=== PATIENT | female | born 1990 | race Caucasian/White ===

== ENCOUNTER 2018-08-14 20:53 | Emergency (ER) | payer OTHER ==
[~2018-08-14] VITALS: Ht 172.7 cm; Wt 131.5 kg
[2018-08-14 21:14] LABS: URINE BILIRUBIN NEGATIVE (Negative); URINE BLOOD 3+ (Negative); URINE CLARITY CLEAR; URINE COLOR YELLOW; URINE GLUCOSE-RANDOM NEGATIVE (Negative); URINE KETONES NEGATIVE (Negative); URINE LEUKOCYTES-REFLEX 1+ (Negative); URINE NITRITE-REFLEX NEGATIVE (Negative); URINE PROTEIN NEGATIVE (Negative); URINE UROBILINOGEN 0.2 E.U./dl (0.2-1.0)
[2018-08-14 21:23] LABS: SQUAMOUS >10 Many /LPF (0-3)
[2018-08-14 21:24] LABS: CASTS None Seen /LPF (None Seen)
[2018-08-14 21:29] LABS: CRYSTALS None Seen /LPF (None Seen); URINE RBC >20 Many /HPF (0-2)
[2018-08-14] MEDS ORDERED: MACROBID 100 M100 M1 PO (21:32)
[2018-08-14] MEDS ORDERED: PYRIDIUM200 MG PO (21:32)
[2018-08-14 21:41] VITALS: BP 126/85
== END 2018-08-14 21:47 | disposition home or self-care (01) ==
LOC: M.ERS 20:53
PROVIDERS: Nurse Practitioner Family
DX: N39.0 Urinary tract infection, site not specified (principal); R31.9 Hematuria, unspecified

== ENCOUNTER → 2018-09-10 | Outpatient (CLI) | payer OTHER ==
[~2018-09-10] MED LIST: MACROBID 100 M100 M1 PO; PYRIDIUM200 MG PO
== END ==
LOC: M.LAB 11:40
DX: N92.6 Irregular menstruation, unspecified (principal)

== ENCOUNTER → 2020-08-14 | Outpatient (CLI) | payer OTHER ==
[~2020-08-14] MED LIST changes: +PRENA1 CHEW TA1.4 MG PO
[2020-08-14 09:02] LABS: ABSOLUTE BASOPHILS 0.1 thou/uL (0.0-0.2); ABSOLUTE EOSINOPHILS 0.1 thou/uL (0.0-0.7); ABSOLUTE LYMPHOCYTES 1.5 thou/uL (0.8-5.3); ABSOLUTE MONOCYTES 0.4 thou/uL (0.0-1.2); ABSOLUTE NEUTROPHILS 6.1 thou/uL (1.6-8.1); BASOPHILS 0.6 %; EOSINOPHILS 1.1 %; HEMATOCRIT 37.8 % (37.0-47.0); HEMOGLOBIN 12.3 gm/dL (12.0-15.0); LYMPHOCYTES 18.3 %; MCH 24.1 pg (26.0-34.0); MCHC 32.7 g/dL (28.0-37.0); MCV 73.9 fL (80.0-100.0); MONOCYTES 5.2 %; MPV 6.4 fl. (7.2-11.1); NUCLEATED RBCS 0 /100WBC; PLATELET COUNT* 438 thou/uL (150-400); POLYS 74.8 %; RBC 5.11 mil/uL (4.20-5.00); WBC 8.2 thou/uL (4.0-11.0)
--- NOTE | 2020-08-14 09:11 | 2DMMODE ---
[place] [address] 2 D/M-MODE ECHOCARDIOGRAM Name: LONNIE SINGH Room: [facility]#: [id number] Admission: 08/14/20 Attend Phys: Jean Ohara, Discharge: Date of : 89 Date of Service: 08/14/20 0911 Report #: [id number] THIS REPORT FOR: cc: Lena Guillaume NP, Elizabeth NP Liston, Michael J. MD [facility] ~ APPROVED REPORT Study performed: 08/14/2020 08:01:03 EXAM: Comprehensive 2D, Doppler, and color-flow Echocardiogram Patient Location: Out-Patient BSA: 2.38 HR: 71 bpm BP: 120/80 mmHg Other Information Study Quality: Good Indications Syncope 2D Dimensions IVSd: 11.31 (7-11mm) LVOT Diam: 20.80 (18-24mm) LVDd: 50.60 mm PWd: 11.20 (7-11mm) Ascending Ao: 27.78 (22-36mm) LVDs: 27.68 (25-40mm) Aortic Root: 32.08 mm Volumes Left Atrial Volume (Systole) LA ESV Index: 15.00 mL/m2 Aortic Valve AoV Peak Aric.: 1.16 m/s AO Peak Gr.: 5.39 mmHg LVOT Max P.07 mmHg AO Mean Gr.: 2.69 mmHg LVOT Mean P.91 mmHg LVOT Max V: 1.01 m/s AO V2 VTI: 22.42 cm LVOT Mean V: 0.63 m/s MARY (VTI): 3.19 cm2 LVOT V1 VTI: 21.03 cm Mitral Valve E/A Ratio: 1.41 [place] [address] 2 D/M-MODE ECHOCARDIOGRAM Name: LONNIE SINGH Room: [facility]#: [id number] Admission: 08/14/20 Attend Phys: Jean Ohara, Discharge: Date of : 89 Date of Service: 08/14/20 0911 Report #: [id number] MV Decel. Time: 163.68 ms MV E Max Aric.: 0.63 m/s MV PHT: 47.47 ms MVA (PHT): 4.63 cm2 TDI E/Lateral E': 5.25 E/Medial E': 6.30 Medial E' Aric.: 0.10 m/s Lateral E' Aric.: 0.12 m/s Pulmonary Valve PV Peak Aric.: 0.69 m/s PV Peak Gr.: 1.92 mmHg Left Ventricle The left ventricle is normal size. There is normal LV segmental wall motion. There is normal left ventricular wall thickness. Left ventricular systolic function is normal. LVEF is 55-60%. The left ventricular diastolic function is normal. Right Ventricle The right ventricle is normal size. The right ventricular systolic function is normal. Atria The left atrium size is normal. The right atrium size is normal. Aortic Valve The aortic valve is normal in structure. No aortic regurgitation is present. There is no aortic valvular stenosis. Mitral Valve The mitral valve is normal in structure. There is no mitral valve regurgitation noted. No evidence of mitral valve stenosis. Tricuspid Valve The tricuspid valve is normal in structure. There is no tricuspid valve regurgitation noted. Pulmonic Valve The pulmonary valve is normal in structure. There is no pulmonic valvular regurgitation. Great Vessels The aortic root is normal in size. IVC is normal in size and collapses >50% [place] [address] 2 D/M-MODE ECHOCARDIOGRAM Name: LONNIE SINGH Room: [facility]#: [id number] Admission: 08/14/20 Attend Phys: Jean Ohara, Discharge: Date of : 89 Date of Service: 08/14/20 0911 Report #: [id number] Pericardium There is no pericardial effusion. <Conclusion> The left ventricle is normal size. There is normal left ventricular wall thickness. Left ventricular systolic function is normal. LVEF is 55-60%. The left ventricular diastolic function is normal. There is normal LV segmental wall motion. IVC is normal in size and collapses >50% with inspiration. <ELECTRONICALLY SIGNED> By: Jean Ohaar MD, FACC 08/14/20910 0 0 Jean Ohara MD, FACC /INF
[2020-08-14 09:20] LABS: ALBUMIN 3.3 g/dL (3.4-5.0); CALCIUM 8.6 mg/dL (8.5-10.1); CREATININE 0.8 mg/dL (0.6-1.3); POTASSIUM 4.4 mmol/L (3.5-5.1); TOTAL BILIRUBIN 0.3 mg/dL (<0.1-1.0); TOTAL PROTEIN 7.3 g/dL (6.4-8.2)
== END ==
LOC: M.CRD 08-01 08:00
PROVIDERS: ATTEND Internal Medicine Cardiovascular Disease
DX: R55 Syncope and collapse (principal)